=== PATIENT | male | born 1965 | race Caucasian/White ===

== ENCOUNTER 2017-04-15 11:15 | Emergency (ER) | payer SELFPAY ==
[2017-04-15 14:02] VITALS: BP 144/81
--- NOTE | 2017-04-16 12:56 | ED ---
Nurys Plaomares Alfonso, scribed for Jayce Multani MD on 04/15/17 at 1342 . Complex/Multi-Sys Presentation - HPI Summary HPI Summary: This patient is a 52 year old M presenting from [facility] urgent care to [facility] accompanied by a female with a chief complaint of jitters since 0930 this morning. The patient rates the pain 0/10 in severity. Symptoms aggravated by nothing. Symptoms alleviated by chocolate milk. Patient reports sore throat, high blood pressure, and high blood sugar (146). Pt reports he drinks a 12 pack of beer every night. He did not have breakfast today. He works as a shop mechanic. He denies any acknowledged tick bites. PMHx includes HTN. - History Of Current Complaint Chief Complaint: EDHypertension Time Seen by Provider: 04/15/17 13:28 Hx Obtained From: Patient Onset/Duration: Sudden Onset, Lasting Hours - 929 Timing: Constant Severity Currently: Moderate Severity Initially: Moderate Aggravating Factor(s): nothing Alleviating Factor(s): chocolate milk. Associated Signs And Symptoms: Positive: Other - sore throat, high blood pressure, and high blood sugar (146). - Allergies/Home Medications Allergies/Adverse Reactions: Allergies Allergy/AdvReac Type Severity Reaction Status Date / Time Bismuth Subsalicylate Allergy Unknown Verified 05/20/14 10:03 [From Pepto-Bismol] Reaction Details Lisinopril Allergy Edema Verified 04/15/17 13:28 Home Medications: Home Medications Metoprolol Succinate 25 mg PO BID 04/15/17 [History Confirmed 04/15/17] PMH/Surg Hx/FS Hx/Imm Hx Endocrine/Hematology History: Denies: Hx Anemia, Hx Unexplained Bleeding Cardiovascular History: Reports: Hx Hypertension - ON MEDS Denies: Hx Aneurysm, Hx Angina, Hx Angioplasty, Hx Auto Implanted Cardiovert Defib, Hx Cardiac Arrest, Hx Cardiomegaly, Hx Congenital Heart Disease, Hx Congestive Heart Failure, Hx Coronary Artery Disease, Hx Deep Vein Thrombosis, Hx Embolism, Hx Hypercholesterolemia, Hx Hypotension, Hx Pacemaker/ICD, Hx Peripheral Vascular Disease, Hx Rheumatic Fever, Hx Syncope, Hx Valvular Heart Disease, Other Cardiovascular Problems/Disorders Respiratory History: Denies: Hx Asthma, Hx Chronic Bronchitis, Hx Chronic Obstructive Pulmonary Disease (COPD), Hx Cystic Fibrosis, Hx Lung Cancer, Hx Pleural Effusion, Hx Pneumonia, Hx Pulmonary Edema, Hx Pulmonary Embolism, Hx Seasonal Allergies, Hx Sleep Apnea, Other Respiratory Problems/Disorders Musculoskeletal History: Reports: Hx Arthritis - HANDS Sensory History: Reports: Hx Cataracts, Hx Contacts or Glasses - READING Denies: Hx Hearing Aid Opthamlomology History: Reports: Hx Cataracts, Hx Contacts or Glasses - READING - Surgical History Surgery Procedure, Year, and Place: RIGHT CATARACT EXT 2008 [facility] Hx Anesthesia Reactions: No Infectious Disease History: No Infectious Disease History: Denies: Hx Clostridium Difficile, Hx Hepatitis, Hx Human Immunodeficiency Virus (HIV), Hx of Known/Suspected MRSA, Hx Shingles, Hx Tuberculosis, Hx Known/ Suspected VRE, Hx Known/Suspected VRSA, History Other Infectious Disease, Traveled Outside the [place] in Last 30 Days - Family History Known Family History: Positive: Unknown - ADPOTED - Social History Alcohol Use: Daily Alcohol Amount: 12 pack Substance Use Type: Reports: Marijuana Substance Use Comment - Amount & Last Used: 05/10 Smoking Status (MU): Heavy Every Day Tobacco Smoker Type: Cigarettes Amount Used/How Often: daily Have You Smoked in the Last Year: Yes Review of Systems Positive: Other - "jitters" Positive: Sore Throat Positive: Other - high blood pressure, and high blood sugar (146). All Other Systems Reviewed And Are Negative: Yes Physical Exam Triage Information Reviewed: Yes Vital Signs On Initial Exam: Initial Vitals Temp Pulse Resp BP Pulse Ox 98.6 F 81 20 149/85 98 04/15/17 11:18 04/15/17 11:18 04/15/17 11:18 04/15/17 11:18 04/15/17 11:18 Vital Signs Reviewed: Yes Appearance: Positive: Well-Appearing, No Pain Distress Skin: Positive: Warm, Skin Color Reflects Adequate Perfusion, Dry Head/Face: Positive: Normal Head/Face Inspection Eyes: Positive: Other: - anicteric ENT: Positive: Normal ENT inspection Neck: Positive: Supple, Nontender Respiratory/Lung Sounds: Positive: Clear to Auscultation, Breath Sounds Present Cardiovascular: Positive: RRR Abdomen Description: Positive: Nontender, Soft Bowel Sounds: Positive: Present Musculoskeletal: Positive: Normal Neurological: Positive: Normal, Sensory/Motor Intact, Alert, Oriented to Person Place, Time, CN Intact II-III Psychiatric: Positive: Affect/Mood Appropriate Diagnostics - Vital Signs Vital Signs Temp Pulse Resp BP Pulse Ox 04/15/17 13:25 98.3 F 82 18 147/85 96 04/15/17 11:18 98.6 F 81 20 149/85 98 - Laboratory Lab Results: Lab Results 04/15/17 Range/Units 13:58 POC Glucose (mg/dL) 111 H (70-100) mg/dL Lab Statement: Any lab studies that have been ordered have been reviewed, and results considered in the medical decision making process. Complex Multi-Symp Course/Dx Course Of Treatment: Mr. Sauer was fine when he woke up but around 0900 while at work he felt very bad and had the 'jitters'. He went to [facility] and they sent him over. By the time he got here, he felt better and felt that he didn't need a W/U. He is a smoker and a big drinker at 6-12 beers a day. His FSG was fine here and he was D/C'd with a recommendation for F/U. - Diagnoses Provider Diagnoses: Near syncope Discharge - Discharge Plan Condition: Stable Disposition: HOME Patient Education Materials: Weakness (ED) Referrals: Ramírez De Oliveira MD [Primary Care Provider] - The documentation as recorded by the Nurys kraus Alfonso accurately reflects the service I personally performed and the decisions made by me, Jayce Multani MD.
== END 2017-04-15 14:24 | disposition home or self-care (01) ==
LOC: ED 11:15
DX: R55 Syncope and collapse (principal); I10 Essential (primary) hypertension; F10.10 Alcohol abuse, uncomplicated; F17.210 Nicotine dependence, cigarettes, uncomplicated

== ENCOUNTER 2017-08-05 14:00 | Emergency (ER) | payer SELFPAY ==
[2017-08-05 14:13] VITALS: BP 142/80
--- NOTE | 2017-08-05 15:03 | UC ---
Dental HPI - HPI Summary HPI Summary: Pt presents with pain in left upper gums for the last 2 days. He tells me that he has dentures and they rub and irritate his upper gums. He was at the dentist 3 days ago and had them "filed down". The next day he developed pain and redness on the left upper gums. He went back to his dentist, but his dentist said it will go away and did not rx an antibiotic. Pt is here very frustrated and said he needs an antibiotic. He is eating and drinking without difficulty. He is wearing his dentures without difficulty. Denies fever, chills, SOB, chest pain, abdominal pain, N/V/D/C. - History of Current Complaint Chief Complaint: UCDentalProblem Stated Complaint: DENTAL PAIN Time Seen by Provider: 08/05/17 15:02 Hx Obtained From: Patient Onset/Duration: Gradual Onset Severity: Moderate Pain Intensity: 4 Pain Scale Used: 0-10 Numeric - Allergies/Home Medications Allergies/Adverse Reactions: Allergies Allergy/AdvReac Type Severity Reaction Status Date / Time Bismuth Subsalicylate Allergy Unknown Verified 05/20/14 10:03 [From Pepto-Bismol] Reaction Details Lisinopril Allergy Edema Verified 04/15/17 13:28 Home Medications: Home Medications Aspirin [Lobo Advanced Aspirin Ex] 500 mg PO 08/05/17 [History] PMH/Surg Hx/FS Hx/Imm Hx Cardiovascular History: Hypertension - Surgical History Surgical History: Yes Surgery Procedure, Year, and Place: RIGHT CATARACT EXT 2007 [facility] [place] - Family History Known Family History: Positive: Unknown - ADPOTED - Social History Occupation: Employed Full-time Lives: With Family Alcohol Use: Daily Alcohol Amount: 12 pack Substance Use Type: Marijuana Substance Use Comment - Amount & Last Used: few times a week Smoking Status (MU): Heavy Every Day Tobacco Smoker Type: Cigarettes Amount Used/How Often: daily Have You Smoked in the Last Year: Yes Cessation Counseling: Counseled 3+Min - 10 Min - Immunization History Most Recent Influenza Vaccination: does not get flu vaccines Most Recent Tetanus Shot: unsure Most Recent Pneumonia Vaccination: unsure if ever had Review of Systems Constitutional: Negative Skin: Negative Eyes: Negative ENT: Dental Pain Respiratory: Negative Cardiovascular: Negative All Other Systems Reviewed And Are Negative: Yes Physical Exam Triage Information Reviewed: Yes Appearance: Well-Appearing, Well-Nourished Vital Signs: Initial Vital Signs Temp 97.8 F 08/05/17 14:09 Pulse 72 08/05/17 14:09 Resp 18 08/05/17 14:09 BP 142/80 08/05/17 14:09 Pulse Ox 100 08/05/17 14:09 Vital Signs Reviewed: Yes Eyes: Positive: Conjunctiva Clear. Negative: Conjunctiva Inflamed, Discharge ENT: Positive: Hearing grossly normal, Pharynx normal, TMs normal, Uvula midline. Negative: Pharyngeal erythema, Nasal congestion, Nasal drainage, TM bulging, TM dull, TM red, Tonsillar swelling, Tonsillar exudate, Sinus tenderness Dental: Positive: Other: - With dentures removed: Left upper gum line has an area of erythema and tenderness to palpation. TTP over left inferior zygomatic bone, directly over the corresponding around of his gums. Mild edema. No bleeding or discharge Neck: Positive: Supple, Nontender, No Lymphadenopathy Respiratory: Positive: Chest non-tender, Lungs clear, Normal breath sounds, No respiratory distress, No accessory muscle use Cardiovascular: Positive: RRR, No Murmur, Pulses Normal Neurological: Positive: Alert Psychological: Positive: Age Appropriate Behavior Skin: Negative: rashes Dental Complaint Course/Dx - Course Course Of Treatment: Gum cellulitis with possible abscess. Will rx for clindamycin and I advised f/u with dentist. - Differential Dx/Diagnosis Provider Diagnoses: Gum line cellulitis Discharge - Discharge Plan Condition: Stable Disposition: HOME Prescriptions: Clindamycin Cap(NF) [Clindamycin Cap 300 mg Cap(NF)] 300 mg PO TID #21 cap Patient Education Materials: Dental Abscess (ED) Referrals: Ramírez De Oliveira MD [Primary Care Provider] - Additional Instructions: If you develop a fever, shortness of breath, chest pain, new or worsening symptoms - please call your PCP or go to the ED. Your blood pressure was high at todays visit. Please see your primary provider within 4 weeks for recheck and re-evaluation.
== END 2017-08-05 15:18 | disposition home or self-care (01) ==
LOC: UCEAST 14:00
DX: K12.2 Cellulitis and abscess of mouth (principal); F17.210 Nicotine dependence, cigarettes, uncomplicated; Z88.8 Allergy status to other drugs, medicaments and biological substances
CPT/HCPCS: 99212; G0463